=== PATIENT | female | born 1960 | race Caucasian/White ===

== ENCOUNTER → 2019-12-21 | Outpatient (CLI) | payer BC, OTHER ==
[~2019-12-21] VITALS: Ht 177.8 cm; Wt 90.9 kg
[~2019-12-21] MED LIST: BACLOFEN20 MG PO; BUPROPION XL150 MG PO; CHANTIX1 EACH PO; COLACE100 MG PO; CORRECTOL5 M1 PO; DARVOCET-N 1001 EAC1 PO; DULCOLAX STOOL100 M1 PO; ESTRADIOL 1 MG T1 M1 PO; FLINTSTONES T100 MCG PO; HYDROCODON-ACE1 EAC7 PO; KLOR-CON M2020 MEQ PO; LEXAPRO20 MG PO; LIPITOR 20 MG T20 M1 PO; LISINOPRIL20 MG PO; METHOCARBAMOL500 M2 PO; NABUMETONE 500500 M1 PO; NASONEX17 GM NS; NORCO 5-325 TA1 EAC1 PO; OMEPRAZOLE40 MG PO; SPIRONOLACTONE25 MG PO; VALIUM2 MG PO; ZETIA10 MG PO; ZYRTEC PO; ZYRTEC-D TABLE1 EAC1 PO; [UNRECOGNIZED DRUG - OTHER] PO
--- NOTE | ~2019-12-21 | HPC ---
[facility] [address] [place] [address] PAIN MANAGEMENT CONSULTATION Name: ZINA ACHARYA Room #: REG [facility]..#: [id number] Admission: 12/21/19 Attend Phys: Umair Batista DO Discharge: Date of : 64 Report #: [id number] THIS REPORT FOR: cc: DORIS AGUILAR MD Physician not on staff Umair Batista DO ~ CC: Umair Batista Physician staff DORIS Millan MD DATE OF SERVICE: 12/21/2019 CHIEF COMPLAINT: Neck pain. HISTORY OF PRESENT ILLNESS: As you know, the patient is a 59-year-old female who underwent fusion of C2 through C7 with Dr. Doris Aguilar utilizing a posterior cervical approach in mid 10/2019. The patient continues to experience post-surgical pain for which she places pain score today at around 7/10. She has 2 very discrete locations of pain, one just superior to the fusion on the left and the second in the mid thoracic area that she describes as muscle spasming. She reports that she has been receiving opioid medication with Dr. Aguilar which is working beneficially for pain control, though she is having some nausea with the hydrocodone. She states that she has been referred to our clinic to discuss treatment suggestions, so that they can either continue her on medication or begin weaning opioid medications. She comes to us with extensive postsurgical changes in pain secondary to that surgery. PAST MEDICAL HISTORY: 1. Hypertension. 2. Hyperlipidemia. 3. Anxiety disorder. 4. Depression. 5. Seasonal allergies. 6. Tobacco habituation. PAST SURGICAL HISTORY: 1. Neck surgery, 09/2010. 2. Appendectomy, 11/10, with oophorectomy. 4. Shoulder surgery. 5. Orthopedic knee surgery. 6. Hysterectomy. 7. Cervical fusion. SOCIAL HISTORY: The patient smokes up to 5 cigarettes per day. She has smoked, [facility] [address] [place] [address] PAIN MANAGEMENT CONSULTATION Name: ZINA ACHARYA Room #: REG [facility].#: [id number] Admission: 12/21/19 Attend Phys: Umair Batista DO Discharge: Date of : 64 Report #: [id number] greater than 30 years. She denies IV or illicit drug use. Denies any chronic alcohol use. She reports she is retired, retiring in 2011. She is not receiving workmen's compensation nor is she trying to obtain disability benefits. She is not in litigation in regards to pain. She is accompanied by her present in room today. REVIEW OF SYSTEMS: Positive for fatigue and weakness, frequent and recurrent headaches, wearing corrective eyewear, chronic sinus problems with rhinitis, sore throat and voice changes, chest pain, changes in bowel movements, nausea and vomiting secondary to opioid medications, nocturia, lightheadedness and dizziness, numbness and tingling sensations, memory loss with confusion, nervousness, depression, insomnia, bleeding and bruising tendencies. All other review of systems negative per 12-point review of systems, and those listed in history of present illness. Pain impact score 59/70 indicating severe interference of daily activities secondary to pain. IMAGING: Cervical MRI obtained 09/28/2019 shows extensive postsurgical changes with mild central canal stenosis at C2-C3, moderate central canal stenosis at C3-C4, multiple level neural foraminal changes and myelomalacia of the spinal cord over C5 on C6. PHYSICAL EXAMINATION: VITAL SIGNS: Blood pressure 123/84, pulse is 90, respiratory rate 18 and unlabored. The patient is satting at 99% on room air. Height 5 feet 10 inches tall, weight 200.4 pounds, BMI calculated 28.8. GENERAL: Well-developed, well-nourished, well-hydrated 59-year-old female, appears her stated age. She is in mild distress secondary to pain, placing current pain score up to 7/10. HEENT: Normocephalic, atraumatic. Pupils equal, round, and reactive to light. Extraocular muscles are intact. NEUROLOGIC: Speech fluent. The patient deemed a good historian. LUNGS: Appear clear. No wheeze, rhonchi or rales. CARDIOVASCULAR: Regular. No appreciable gallop, no rub. ABDOMEN: Soft, mildly obese, normoactive bowel sounds. EXTREMITIES: Show no clubbing, no cyanosis, and no edema. MUSCULOSKELETAL: Upper extremity strength is weakened bilaterally, this appears to be due to deconditioning. Muscle bulk and tone equal and symmetrical in comparing left upper extremity to right. There is a cervical collar in place. She has tactile sensation changes over the C8 and T1 dermatomal distribution on the left. There is palpatory tenderness over the paraspinal musculature of the cervical spine, just superior to the fusion at approximately C2 on the left, negative right. There is also some muscle spasming in the upper thoracic area, but no specific trigger points. ASSESSMENT: 1. Postsurgical pain. [facility] [address] [place] [address] PAIN MANAGEMENT CONSULTATION Name: ZINA ACHARYA Room #: REG [facility]#: [id number] Admission: 12/21/19 Attend Phys: Umair Batista DO Discharge: Date of : 64 Report #: [id number] 2. Myofascial pain. PLAN: 1. Based on today's physical exam and history the patient has provided, the description the patient uses in regards to pain as well as location of symptoms, likely source of the patient's pain is post-surgical in nature. The patient was referred to our clinic to discuss the appropriateness of the use of medication management in her case. She apparently is taking hydrocodone 5/325 up to 4 a day for pain control, this along with Valium being provided through her neurosurgeon. She does state that the Valium makes her very sleepy and she only uses it at night. Apparently it is being used for muscle spasming effects, though the patient has reported no improvement at those site of pain generators, but does note it does improve her overall sleep. As for the hydrocodone, the patient states that is working well for pain control, though she is having some nausea with this therapy. She has trialed tramadol in the past, but this apparently gave her no benefit. She has had oxycodone, which caused severe nausea and vomiting, which she would not wish to reinitiate. The patient and I discussed her side effects to medications and her ongoing post-surgical pain and I have advised her of the followin. Recommend the patient remain on hydrocodone and have taken the liberty of providing a 1-month prescription for the patient to reduce her reliance of having to run to and from Dr. Aguilar's office, though she was advised this one month worth of medication is only to provide the coverage for the next 30 days. Future prescriptions will have to be provided by the Surgery team or by her primary care physician. We are not at that time accepting long-term opioid medication management patients. We have provided her with 120 of the hydrocodone 5/325 with the understanding that followup will be with Neurosurgery and her primary care physician. We recommend she remain on the medication utilizing them only as necessary and wean off as quickly as possible. 3. We recommend the initiation of nabumetone 500 mg dose 1 tab p.o. t.i.d. with meals. A anti-inflammatory medication in this patient's case would be most beneficial. We have cautioned the patient to watch for dyspepsia, worsening of blood pressure, and lower extremity edema with its use. She will watch for any side effects. We have provided the prescription with 2 refills, if she wishes to remain on the therapy for anti-inflammatory efficacy. 4. The patient was provided a prescription of baclofen. We have given her 20 mg dose, but have advised her to take half a tab up to 3 times a day for muscle spasming. She was given #90 of the 20-mg tablets with the understanding that she will take a half a tab initially. If this is not providing efficacy, then increase the dose to a full tab up to 3 times a day. She is not to drive or operate heavy equipment while on this medication as it can cause somnolence, decreased mental acuity, disorientation and confusion. 5. We had discussed with the patient the possibility of undergoing injections and this would not be of benefit in this patient's case. The pain that the patient is experiencing is related to postsurgical issues and will not be amenable to steroid injections in the cervical region. [address] [address] PAIN MANAGEMENT CONSULTATION Name: ZINA ACHARYA Room #: REG CL [facility]#: [id number] Admission: 12/21/19 Attend Phys: Umair Batista DO Discharge: Date of : 64 Report #: [id number] 6. We will be returning the patient's care to the referring neurosurgeon with the understanding that the adjustments made in medication management were to assist in postoperative pain control, this medication can certainly be continued through your capable services or through the patient's primary care physician if it is needed for a longer term treatment. We are hopeful the adjustments in medication today will improve the patient's ongoing pain, as she heals from the postsurgical issues and we wish her luck with continued treatment. 7. We wish to thank Dr. Aguilar for the referral of the patient to our clinic. We are hopeful the information provided above will help direct her care for future treatment. We will be returning her care to your capable services to continue the medication if necessary from a post-surgical standpoint for pain control. Again, we wish to thank you for the opportunity to see the patient in consultation. By: [id number] Umair Batista DO /nt
[2019-12-21 12:49] VITALS: BP 123/84
--- NOTE | 2019-12-21 13:13 | NUR ---
Pain Clinic Assessment: 1. History of Osteoarthritis: STATES NO History of Rheumatoid Arthritis: NONE 2. Height: 5 ft. 10 in. 177.8 cm. Weight: 200.4 lb. oz. 90.901 kg. Patient's BMI: 28.8 3. Vital Signs: BP: 123/84 Pulse: 90 Resp: 18 Temp: 02 Sat: 99 ECG Mon: 4. Pain Intensity: 7 5. Fall Risk: Dizziness: Y Needs help standing or walking: N Fallen in the last 3 months: Y Fall risk comments: 6. Patient on Blood Thinner: None 7. History of Hypertension: Y 8. Opioid Therapy greater than 6 weeks: Y Opiate Contract Signed: 9. Risk Assessment Tool Provided: 1-LOW RISK 10. Functional Assessment Tool: 59/70 11. Recreational Drug Use: Never Drug Type: Tobacco Use: Current Every Day Smoker Tobacco Type: Cigarettes Amount or Packs/day: 4-5 How Many Years: 30 Alcohol Use: No Frequency: Quant:
== END ==
LOC: PAIN 09:15
DX: M79.18 Myalgia, other site (principal); G89.18 Other acute postprocedural pain; I10 Essential (primary) hypertension; E78.5 Hyperlipidemia, unspecified; F41.8 Other specified anxiety disorders; Z90.49 Acquired absence of other specified parts of digestive tract; Z90.89 Acquired absence of other organs; Z90.710 Acquired absence of both cervix and uterus